=== PATIENT | female | born 1950 | race Caucasian/White ===

== ENCOUNTER 2017-02-17 22:57 | Emergency (ER) | payer MEDICARE ==
[~2017-02-17] VITALS: Ht 162.6 cm; Wt 111.0 kg
[~2017-02-17 22:57] MED LIST: ASCO100089 PO; BECL8.7A6 INHALATION; CALC600T12 PO; CHOL100045 PO; CYAN1TAB19 PO; DOCU-41 PO; FUR20 PO; HYDR-3939 PO; INSU100I18 SUBQ; INSU100V7 SUBQ; LATA2.5D5 BOTH_EYES; LEVO125T2 PO; MAGN400C PO; METO-386 PO; MULT-1073 PO; OMEG500C PO; OXYC-474 PO; VITA-251 PO
[2017-02-17 23:12] VITALS: BP 113/70; PULSE 74; RESP 18; O2SAT 97
--- NOTE | 2017-02-17 23:14 | ED.REPORT ---
HPI-Back Pain 40 and Over Date of Service Feb 17, 2017 ED Provider: Dr. Farnsworth The pt is a 66 y/o female with a hx of CHF, DM, thyroid disease, and neuropathy who presents to the ED via EMS complaining of sudden right sided back spasm that radiated up to her right shoulder, onset 45 minutes ago. Her sx have resolved in the ED. She was given 100mcg fentanyl. She also experienced muscle spasms in her right calf. She has never experienced similar sx before. When the pt was discharged from the hospital after CHF treatment 2 days ago she was also told she was hypokalemic. She took her potassium medication prior to arrival. The pt used to get leg cramps at night in the past but has not had them recently. Nursing Notes Stated Complaint: BACK SPASM Chief Complaint: Back Pain or Injury Nursing Notes Reviewed: Yes Allergies: Coded Allergies: ceftriaxone (Verified Adverse Reaction, Severe, 05/01/16) severe neutropenia Scheduled Ascorbic Acid (Vitamin C) 1,000 Mg Tab.chew 1,000 MG PO DAILY Beclomethasone Dipropionate (Qvar) 8.7 Gm Aer.w.adap 2 PUFF INHALATION BID Calcium Carbonate (Calcium) 600 Mg Tablet 600 MG PO DAILY Cholecalciferol (Vitamin D3) (Vitamin D) 1,000 Unit Capsule 1,000 UNIT PO DAILY Cyanocobalamin/FA/Pyridoxine (B Complex-Folic Acid Tablet) 1 Each Tablet 1 EACH PO DAILY Docusate Sodium (Colace) 100 Mg Capsule 100-200 MG PO DAILY Furosemide (Furosemide) 20 Mg Tab 80 MG PO BID Hydralazine (Hydralazine) 25 Mg Tablet 25 MG PO Q6 Insulin Glargine (Lantus U100 Insulin Vial) 100 Unit/Ml Vial 20 UNIT SUBQ QAM Insulin Lispro (HumaLOG U100 Insulin Pen) 100 Unit/1 Ml Insuln.pen 3-10 UNIT SUBQ ACHS Blood Sugar Lispro Correction <151 0 units 151-175 1 unit 176-200 2 units 201-225 3 units 226-250 4 units 251-275 5 units 276-300 6 units 301-325 7 units 326-350 8 units 351-375 9 units 376-400 10 units >400 12 units Check blood sugars before meals and at bedtime. Use correction factor only before meals. Latanoprost (Xalatan) 2.5 Ml Drops 1 DROP BOTH_EYES HS Levothyroxine (Synthroid) 125 Mcg Tablet 125 MCG PO DAILY Magnesium Oxide (Magnesium) 400 Mg Capsule 400 MG PO DAILY Metoprolol Succinate ER (Metoprolol Succinate ER) 25 Mg Tab.er.24h 12.5 MG PO DAILY Multivits-Min/FA/Lycopene/Lut (Centrum Silver Tablet) 1 Each Tablet 1 EACH PO DAILY Elma-3 Fatty Acids (Fish Oil) 500 Mg Capsule.dr 1,000 MG PO DAILY Vitamin E (Dl,Tocopheryl Acet) (Vitamin E) 1,000 Unit Capsule 1,000 UNIT PO DAILY Scheduled PRN Oxycodone (Roxicodone) 5 Mg Tablet 5-10 MG PO Q4H PRN PRN For Pain General Time Seen by MD: 23:14 Chief Complaint Back pain Hx Obtained From: Patient Arrived By: Ambulance Sudden in Onset?: Yes Onset Occurred: 31 - 45 minutes ago Symptom Duration: 1 - 15 minutes Location: : Flank right Quality: Cramping Radiation: : Does not radiate Severity: Current: No pain currently Severity: Maximum: Moderate Recent Healthcare: Recent doctor visit Past Medical History Past Medical History Thyroid disease Neuropathy DM HTN CHF Endometrial cancer Past Surgical History Foot Bunionectomy Lap hysterectomy with BSO Smoking History Unknown if Ever Smoker Social History Other Social History: Good social support Ambulatory Status Independent Review of Systems Reports: right sided back muscle spasm Reports; right calf spasm Complete sys rev & neg: except as marked. Physical Exam Initial Vital Signs Vital Signs (First) Date Time Temp Pulse Resp B/P Pulse Ox O2 Delivery O2 Flow Rate FiO2 02/17/17 23:12 36.8 74 18 113/70 97 Room Air Initial VS: Reviewed Head / Eyes: Atraumatic, Normocephalic Neck: Supple, Non-tender, Full range of motion Extremities: Vascular intact, Neuro intact, No swelling, No tenderness Skin: Warm, Dry, No cyanosis General/Constitutional: Awake, Alert, No acute distress, Well appearing, Cooperative Respiratory / Chest: Atraumatic, Breath sounds NL, Breath sounds = bilat, No respiratory distress, No rales, No rhonchi, No wheezing Cardiovascular: Heart rate NL, Regular rhythm, Heart sounds NL, No gallop, No murmurs, No rubs Abdomen: Atraumatic, Soft, Non-tender, No guarding, No rebound Back: Atraumatic, Full range of motion, Painless range of motion Neurologic: Oriented X3, Speech NL, No motor deficits, No sensory deficits Interpretation & Diagnostics Lab Results Interpretation Result Diagram: 02/17/17 2310 02/17/17 2310 Test 02/17/17 23:10 White Blood Count 9.3th/mm3 (3.8-10.1) Red Blood Count 2.69mil/mm3 (3.90-5.20) Hemoglobin 9.2g/dL (12.0-15.6) Hematocrit 30.8% (35.0-46.0) Mean Corpuscular Volume 114.5fL (81-100) Mean Corpuscular Hemoglobin 34.2pg (27.0-35.0) Mean Corpuscular Hemoglobin Concent 29.9% (32.0-37.0) Red Cell Distribution Width 19.6% (12.3-15.4) Platelet Count 130bil/L (150-400) Neutrophils (%) (Auto) 75% (40-74) Lymphocytes (%) (Auto) 16% (14-46) Monocytes (%) (Auto) 15% (4-12) Eosinophils (%) (Auto) 0% (0-5) Basophils (%) (Auto) 0% (0-3) Band Neutrophils % 5% (1-5) Hematology Comments Prothrombin Time 13.0sec (8.1-12.5) Prothromb Time International Ratio 1.21ratio Sodium Level 139mEq/L (134-144) Potassium Level 4.6mEq/L (3.5-5.2) Chloride Level 91mEq/L (97-108) Carbon Dioxide Level 28mmol/L (18-29) Blood Urea Nitrogen 48mg/dL (8-27) Creatinine 2.00mg/dL (0.57-1.00) Estimat Glomerular Filtration Rate 36mL/min (>59) Glucose Level 148mg/dL (60-99) Calcium Level 10.0mg/dL (8.5-10.1) Magnesium Level 2.0mg/dL (1.6-2.6) Total Bilirubin 1.7mg/dL (0.0-1.2) Aspartate Amino Transf (AST/SGOT) 40U/L (0-50) Alanine Aminotransferase (ALT/SGPT) 23U/L (0-32) Alkaline Phosphatase 138U/L (25-165) Pro-B-Type Natriuretic Peptide 90553yz/mL (0-287) Total Protein 7.8g/dL (6.4-8.4) Albumin 4.3g/dL (3.4-5.0) ECG Interpretation ECG Interpretation: Normal sinus rhythm. Rate 73 Possible anterior wave HI Poor R wave progression Time: 23:31 Interpreted by: ED physician Re-Eval/Medical Decision Med Decision/Clinical Course 66-year-old presents with a stents back pain, but on closer evaluation appears to have migratory muscle cramping. This includes calf cramping arm cramping and cramping of the thoracolumbar columns alternating. Electrolytes are essentially normal. She seemed to have some improvement with potassium taken at home. Unclear whether that was helpful or not but her potassium is normal here in any case. Trial of tonic water suggested. Follow up with PCP. Source of Hx: Old records Re-Evaluation/Progress : Time of Eval: 01:24 Patient Status: Condition improved Re-Evaluation/Progress Note: Rechecked pt. Discussed lab results, diagnosis and plan to discharge. Pt understands and agrees with the plan. F/U instruction and RTER warning given. All questions addressed. Counseled Regarding: Diagnosis, Lab results, Need for follow-up, When/why to return to ED Discharge & Departure Impression: Primary Impression: Muscle cramps Disposition: Home Discharge Condition All VS Reviewed: Yes Condition: Stable Patient Instructions: Leg Cramps (ED) Additional Instructions: These appear to be muscle cramps, similar to leg cramps. They can happen in the setting of change in potassium and magnesium and calcium levels. They can be very difficult to treat. Sometimes some additional magnesium or potassium can be helpful. Many people get relief from quinine water. If you develop cramps, you may drink 8 ounces of tonic water (must have quinine in it). Follow-up with your doctor in the office. Return if any immediate issues. Referrals: OTHER,PHYSICIAN (PCP) Scribe Attestation Portions of this note were transcribed by Monique Farmer. I,, personally performed the history,physical exam and medical decision-making;I reviewed and confirmed the accuracy of the information in the transcribed note. Signed by Bianca Kim. 02/17/17 John Farnsworth MD Feb 17, 2017 23:14 Monique Farmer Feb 17, 2017 23:21
[2017-02-17 23:36] LABS: Mean Corpuscular Hemoglobin 34.2 pg (27.0-35.0); Mean Corpuscular Volume 114.5 fL (81-100); Platelet Count 130 bil/L (150-400)
[2017-02-17 23:54] LABS: BASOPHILS % (AUTO) 0 % (0-3); EOSINOPHILS % (AUTO) 0 % (0-5); MONOCYTES % (AUTO) 15 % (4-12); NEUTROPHILS % (AUTO) 75 % (40-74)
[2017-02-17 23:57] LABS: INR 1.21 ratio
[2017-02-18 00:51] VITALS: BP 136/44; PULSE 70; RESP 18; O2SAT 94
== END 2017-02-18 01:40 | disposition home or self-care (01) ==
LOC: EDBD 22:57 → SED 22:57 → EDUNIT# 22:57 → SED 02-18 01:40
DX: R25.2 Cramp and spasm (principal); I11.0 Hypertensive heart disease with heart failure; I50.9 Heart failure, unspecified; E11.40 Type 2 diabetes mellitus with diabetic neuropathy, unspecified; Z85.42 Personal history of malignant neoplasm of other parts of uterus; Z90.710 Acquired absence of both cervix and uterus; Z79.4 Long term (current) use of insulin; Z88.1 Allergy status to other antibiotic agents